=== PATIENT | male | born 1980 | race Caucasian/White ===

== ENCOUNTER 2018-09-13 21:50 | Emergency (ER) | payer SELFPAY ==
[~2018-09-13] VITALS: Ht 172.7 cm; Wt 102.1 kg
[2018-09-13 21:58] VITALS: BP 145/98
--- NOTE | 2018-09-13 22:02 | NUR ---
TO ED LOBBY AWATING BED IN MAIN ED.
--- NOTE | 2018-09-13 22:38 | NUR ---
PT TAKEN TO BED 5
[2018-09-13 22:39] VITALS: BP 145/98
--- NOTE | 2018-09-13 22:39 | NUR ---
37 Y/O PRESENTED TO ED WITH C/O L ANKLE PAIN S/P MECHANICAL FALL LAST NIGHT. EDEMA NOTED TO L ANKLE. ANKLE TENDER TO TOUCH. +CMS. PER PT DIFFICULT TO AMBULATE. CAP REFILL LESS THAN 3 SECONDS. SKIN NORMAL PER ETHNICITY. ERMD NOTIFIED. WILL CONTINUE TO MONITOR.
[2018-09-13] MEDS ORDERED: IBUPROFEN 800 MG TAB PO ONE (22:45)
--- NOTE | 2018-09-13 22:53 | NUR ---
CHIQUITA WRAP PLACED ON PT L ANKLE. +CSM
--- NOTE | 2018-09-13 22:55 | NUR ---
PT GIVEN INSTRUCTION ON PROPER USE OF CRUTCHES. CRUTCHES FITTED TO PT HEIGHT AND ARM LENGTH. PT GIVEN INSTRUCTION ON USE OF CRUTCHES, INCLUDING SITTING TO STANDING AND VICE VERSA, ASCEDNING/DESCENDING STAIRS, AND WALKING. PT DEMONSTRATED SAFE USE FOR APPROXIMATELY 40 FEET, STATED HE FELT COMFORTABLE WITH USE.
--- NOTE | 2018-09-13 23:04 | NUR ---
Patient discharged with v/s stable. Written and verbal after care instructions given and explained. Patient alert, oriented and verbalized understanding of instructions. Ambulatory with steady gait with crutches. All questions addressed prior to discharge. ID band removed. Patient advised to follow up with PMD. Rx of Ibuprofen given. Patient educated on indication of medication including possible reaction and side effects. Opportunity to ask questions provided and answered.
== END 2018-09-13 23:04 | disposition home or self-care (01) ==
LOC: MED 21:50
DX: S93.402A Sprain of unspecified ligament of left ankle, initial encounter (principal); X50.1XXA Overexertion from prolonged static or awkward postures, initial encounter; Y93.89 Activity, other specified; Y92.89 Other specified places as the place of occurrence of the external cause; Y99.8 Other external cause status
CPT/HCPCS: 73610; 99283

== ENCOUNTER 2019-11-05 10:14 | Emergency (ER) | payer MEDICAID ==
[~2019-11-05] VITALS: Ht 172.7 cm; Wt 103.0 kg
--- NOTE | 2019-11-05 10:15 | NUR ---
PT W/C ASSISTED TO BED 4.
[2019-11-05 10:23] VITALS: BP 126/77
--- NOTE | 2019-11-05 10:27 | NUR ---
38 y/o male from home c/o bilateral leg and foot pain, head pain, and blurred vision. States he fell from 2 story balcony 3 days ago, hit head with +LOC. Was admitted to [facility] night and discharged yesterday. Unable to ambulate due to 8/10 bilateral leg and foot pain. Noticable bruising to right foot. Abrasion to right upper arm noted. Pt awake and alert, GCS 15. Denies taking medication for pain today. medhx: denies
--- NOTE | 2019-11-05 10:52 | NUR ---
Dr. Huff is evaluating the patient at bedside.
[2019-11-05] MEDS ORDERED: KETOROLAC 30 MG/ML VIAL IM ONE (11:00)
--- NOTE | 2019-11-05 12:03 | NUR ---
Positioned for comfort, HOB elevated. Decrease in pain s/p Toradol IM. Awake and alert. VSS
--- NOTE | 2019-11-05 12:48 | NUR ---
Pt verbalizes and return demonstrates use of crutches.
[2019-11-05 12:49] VITALS: BP 121/74
--- NOTE | 2019-11-05 12:49 | NUR ---
Patient discharged with v/s stable. Written and verbal after care instructions given and explained. Patient alert, oriented and verbalized understanding of instructions. Ambulatory with steady gait. All questions addressed prior to discharge. ID band removed. Patient advised to follow up with PMD. Rx of Naprosyn 500mg and [place] 5mg-325mg given. Patient educated on indication of medication including possible reaction and side effects. Opportunity to ask questions provided and answered.
== END 2019-11-05 12:49 | disposition home or self-care (01) ==
LOC: MED 10:14
DX: S90.31XA Contusion of right foot, initial encounter (principal); S90.32XA Contusion of left foot, initial encounter; S83.91XA Sprain of unspecified site of right knee, initial encounter; S39.012A Strain of muscle, fascia and tendon of lower back, initial encounter; S09.90XA Unspecified injury of head, initial encounter; W13.0XXA Fall from, out of or through balcony, initial encounter; Y93.89 Activity, other specified; Y92.89 Other specified places as the place of occurrence of the external cause; Y99.8 Other external cause status
CPT/HCPCS: 70450; 72100; 73620; 96372; 99284; J1885

== ENCOUNTER 2022-10-16 10:59 | Inpatient (IN) | payer MEDICAID ==
[~2022-10-16] VITALS: Ht 172.7 cm; Wt 122.9 kg
[2022-10-16 11:03] VITALS: BP 150/104; PULSE 90; RESP 20; TEMP 97.7; O2SAT 97
[2022-10-16 11:46] VITALS: O2SAT 97
[2022-10-16 11:50] LABS: BASOPHILS % (AUTO) 0.3 % (0.0-2.0); EOSINOPHILS % (AUTO) 0.3 % (0.0-4.0); HEMATOCRIT 41.6 % (36-52); HEMOGLOBIN 14.3 g/dL (12.0-18.0); LYMPHOCYTES % (AUTO) 8.2 % (20.5-51.1); MEAN CORPUSCULAR HEMOGLOBIN 31 pg (27-31); MEAN CORPUSCULAR HGB CONC 34 g/dL (33-37); MEAN CORPUSCULAR VOLUME 89.7 fL (80-94); MONOCYTES # (AUTO) 0.8 K/uL (0.8-1.0); MONOCYTES % (AUTO) 6.6 % (1.7-9.3); NEUTROPHILS # (AUTO) 10.1 K/uL (1.8-7.7); NEUTROPHILS % (AUTO) 84.6 % (42.2-75.2); PLATELET COUNT (AUTO) 178 K/uL (140-450); RED BLOOD CELL COUNT(AUTO) 4.64 MIL/uL (4.20-6.10)
[2022-10-16] MEDS ORDERED: DICYCLOMINE HCL LIQUID 20 MG, ALUMINUM HYD/MAG/SIMETHICONE 30 ML, LIDOCAINE VISCOUS 2% ... PO ONE ×3 (11:50)
[2022-10-16] MEDS ORDERED: ACETAMINOPHEN EXTRA STRENGTH 500 MG TAB PO ONE (11:50)
[2022-10-16] MEDS ORDERED: ALUMINUM HYD/MAG/SIMETHICONE 30 ML UDC ONE (12:00)
[2022-10-16] MEDS ORDERED: DICYCLOMINE HCL LIQUID 10 MG/5 ML UDC ONE (12:00)
[2022-10-16 12:28] LABS: ALBUMIN 3.8 g/dL (3.4-5.0); CARBON DIOXIDE 29.7 mmol/L (21-32); CREATININE 0.9 mg/dL (0.6-1.3); POTASSIUM 3.7 mmol/L (3.5-5.1)
[2022-10-16] MEDS ORDERED: MORPHINE SULFATE 4 MG/ML SYR IVP ONE ×2 (13:20→17:50)
[2022-10-16 13:42] LABS: APPEARANCE,URINE CLEAR (CLEAR); BILIRUBIN,URINE NEGATIVE (NEGATIVE); BLOOD, URINE NEGATIVE (NEGATIVE); COLOR,URINE YELLOW (YELLOW); LEUKOCYTE ESTERASE ,URINE NEGATIVE (NEGATIVE); NITRITE, URINE NEGATIVE (NEGATIVE); PH,URINE 8.5 (5.0-9.0); PROTEIN,URINE TRACE (NEGATIVE); UGLUCOSE NEGATIVE (NEGATIVE)
[2022-10-16 13:46] VITALS: O2SAT 97
[2022-10-16] MEDS ORDERED: hydrALAZINE 20 MG/ML VIAL IVP ONE (13:55)
[2022-10-16 14:02] LABS: AMPHETAMINE, URINE NEGATIVE ng/ml (NEG <=1000); BARBITURATE, URINE NEGATIVE ng/ml (NEG <=200); BENZODIAZEPINE, URINE NEGATIVE ng/mL (NEG <=200); CANNABINOID, URINE NEGATIVE ng/mL (NEG <=50); COCAINE, URINE NEGATIVE ng/mL (NEG <=300); OPIATE, URINE NEGATIVE ng/mL (NEG <=2000); PHENCYCLIDINE SCREEN,URINE NEGATIVE ng/mL (NEG <=25)
[2022-10-16] MEDS ORDERED: metroNIDAZOLE 500 MG/NS PREMIX 100 ML IV ONE (15:35)
[2022-10-16 15:46] VITALS: O2SAT 98
[2022-10-16] MEDS ORDERED: cefTRIAXone 1,000 MG VIAL ONE (15:51)
[2022-10-16] MEDS ORDERED: HYDROcodone/APAP 5/325 MG 1 TAB TAB PO PRN (17:05)
[2022-10-16] MEDS ORDERED: MORPHINE SULFATE 2 MG/ML SYR IVP PRN (17:05)
[2022-10-16] MEDS: NACL 0.9% 1,000 ML IV SCH (17:52)
[2022-10-16 20:00] VITALS: PULSE 106; RESP 20; O2SAT 99
[2022-10-17] VITALS: BP 142/91; PULSE 106; RESP 20; TEMP 98.1; O2SAT 99
[2022-10-17] MEDS: NACL 0.9% 1,000 ML IV SCH ×2 (06:21→20:05)
[2022-10-17 08:00] VITALS: BP 128/90; PULSE 96; RESP 18; TEMP 98.5; O2SAT 97
[2022-10-17 09:00] VITALS: O2SAT 94
[2022-10-17] MEDS ORDERED: ceFAZolin 2,000 MG VIAL ONE (13:00)
[2022-10-17] MEDS ORDERED: SEVOFLURANE 250 ML BTL INH ONE (13:00)
[2022-10-17] MEDS ORDERED: ONDANSETRON 4 MG/2 ML VIAL ONE ×2 (13:00→13:53)
[2022-10-17] MEDS ORDERED: PROPOFOL 200 MG/20 ML VIAL IV ONE ×2 (13:00→13:53)
[2022-10-17] MEDS ORDERED: ROCURONIUM 50 MG/5 ML VIAL IV ONE (13:00)
[2022-10-17] MEDS ORDERED: NEOMYCIN/POLYMYXIN/BACITRACIN 0.9 GM/1 PKT TP ONE (13:00)
[2022-10-17] MEDS ORDERED: METOCLOPRAMIDE 10 MG/2 ML INJ VIAL ONE ×2 (13:00→13:53)
[2022-10-17] MEDS ORDERED: GLYCOPYRROLATE 0.2 MG/ML VIAL ONE ×3 (13:00→13:58)
[2022-10-17] MEDS ORDERED: MIDAZOLAM IV ONE (13:00)
[2022-10-17] MEDS ORDERED: DEXAMETHASONE 4 MG/ML VIAL ONE ×2 (13:00→13:53)
[2022-10-17] MEDS ORDERED: KETOROLAC 30 MG/ML VIAL ONE ×2 (13:00→14:00)
[2022-10-17] MEDS ORDERED: fentaNYL citrate 0.05 MG/ML - 50mL vial IV ONE (13:00)
[2022-10-17] MEDS ORDERED: BUPIVACAINE-MPF/EPI 0.25% 10 ML VIAL INJ ONE (13:18)
[2022-10-17] MEDS ORDERED: LIDOCAINE MPF 1% 10 ML ONE (13:18)
[2022-10-17] MEDS ORDERED: fentaNYL citrate 0.05 MG/ML VIAL ONE (13:27)
[2022-10-17] MEDS ORDERED: MIDAZOLAM 2 MG/2 ML VIAL ONE (13:29)
[2022-10-17] MEDS ORDERED: ceFAZolin 1,000 MG VIAL ONE (13:54)
[2022-10-17] MEDS ORDERED: NEOSTIGMINE 1:1000 10 MG/10 ML VIAL ONE (13:58)
[2022-10-17] MEDS ORDERED: ONDANSETRON 4 MG/2 ML VIAL IVP PRN (14:20)
[2022-10-17] MEDS ORDERED: HYDROmorphone 1 MG/ML AMP IVP PRN (14:20)
[2022-10-17] MEDS ORDERED: HYDROcodone/APAP 5/325 MG 1 TAB TAB PO PRN (15:25)
[2022-10-17 16:00] VITALS: BP 117/79; PULSE 109; RESP 18; TEMP 98.1; O2SAT 96
[2022-10-17] MEDS: HYDROmorphone 1 MG/ML AMP IVP PRN ×2 (17:00→23:01)
[2022-10-17 20:00] VITALS: BP 130/87; PULSE 110; RESP 18; RESP 20; TEMP 99.9; O2SAT 90; O2SAT 92
[2022-10-18 04:00] VITALS: BP 127/73; PULSE 92; RESP 18; TEMP 98.9; O2SAT 93
[2022-10-18] MEDS: NACL 0.9% 1,000 ML IV SCH ×2 (04:33→22:45)
[2022-10-18] MEDS: HYDROmorphone 1 MG/ML AMP IVP PRN ×3 (05:06→21:04)
[2022-10-18 08:00] VITALS: PULSE 96; RESP 18; O2SAT 94
[2022-10-18 08:10] VITALS: BP 134/79; PULSE 96; RESP 18; TEMP 98.5; O2SAT 93
[2022-10-18] MEDS ORDERED: METR-520 PO (11:24)
[2022-10-18] MEDS ORDERED: IBUP-2213 PO (11:24)
[2022-10-18 11:34] VITALS: BP_SYST 124; BP_SYST 134; BP_DIAS 74; BP_DIAS 79; PULSE 95; PULSE 96; RESP 18; TEMP 98.4; TEMP 98.5
[2022-10-18 11:41] LABS: BASOPHILS % (AUTO) 0.2 % (0.0-2.0); EOSINOPHILS # (AUTO) 0.1 K/uL (0-0.4); EOSINOPHILS % (AUTO) 0.6 % (0.0-4.0); HEMATOCRIT 36.1 % (36-52); HEMOGLOBIN 12.3 g/dL (12.0-18.0); LYMPHOCYTES # (AUTO) 1.6 K/uL (2.0-11.5); LYMPHOCYTES % (AUTO) 11.7 % (20.5-51.1); MEAN CORPUSCULAR HEMOGLOBIN 31 pg (27-31); MEAN CORPUSCULAR HGB CONC 34 g/dL (33-37); MEAN CORPUSCULAR VOLUME 90.9 fL (80-94); MONOCYTES # (AUTO) 1.3 K/uL (0.8-1.0); NEUTROPHILS # (AUTO) 10.5 K/uL (1.8-7.7); NEUTROPHILS % (AUTO) 77.5 % (42.2-75.2); PLATELET COUNT (AUTO) 151 K/uL (140-450); RED BLOOD CELL COUNT(AUTO) 3.97 MIL/uL (4.20-6.10); RED CELL DISTRIBUTION WIDTH 13.3 % (11.6-13.7); WHITE BLOOD COUNT (AUTO) 13.5 K/uL (4.8-10.8)
[2022-10-18 12:24] LABS: ALBUMIN 2.7 g/dL (3.4-5.0); ANION GAP 11.7 (8-16); CALCIUM 8.4 mg/dL (8.5-10.1); CARBON DIOXIDE 27.6 mmol/L (21-32); CREATININE 0.9 mg/dL (0.6-1.3); POTASSIUM 4.3 mmol/L (3.5-5.1); TOTAL BILIRUBIN 1.2 mg/dL (0.0-1.0); TOTAL PROTEIN, SERUM 7.2 g/dL (6.4-8.2)
[2022-10-18 15:17] VITALS: BP 136/74; PULSE 94; RESP 18; TEMP 97; O2SAT 92
[2022-10-18 20:00] VITALS: BP 127/87; PULSE 97; RESP 18; TEMP 98; O2SAT 97
[2022-10-18] MEDS ORDERED: cefTRIAXone 1,000 MG VIAL ONE (20:55)
[2022-10-18] MEDS: metroNIDAZOLE 500 MG/NS PREMIX 100 ML IV SCH (21:57)
[2022-10-19] MEDS: NACL 0.9% 1,000 ML IV SCH (01:26)
[2022-10-19] MEDS: HYDROmorphone 1 MG/ML AMP IVP PRN ×2 (03:07→08:54)
[2022-10-19 04:00] VITALS: BP 122/72; PULSE 94; RESP 18; TEMP 98.3; O2SAT 94
[2022-10-19] MEDS: metroNIDAZOLE 500 MG/NS PREMIX 100 ML IV SCH ×2 (05:39→11:53)
[2022-10-19 08:00] VITALS: PULSE 90; RESP 18; O2SAT 95
[2022-10-19] MEDS ORDERED: ENOXAPARIN 40 MG/0.4 ML SYR SUBQ SCH (09:00)
[2022-10-19 09:13] VITALS: BP 124/74; PULSE 90; RESP 18; TEMP 98.4; O2SAT 95
[2022-10-19 09:19] LABS: BASOPHILS % (AUTO) 0.4 % (0.0-2.0); EOSINOPHILS # (AUTO) 0.2 K/uL (0-0.4); EOSINOPHILS % (AUTO) 1.9 % (0.0-4.0); HEMATOCRIT 37.2 % (36-52); HEMOGLOBIN 12.5 g/dL (12.0-18.0); LYMPHOCYTES # (AUTO) 1.4 K/uL (2.0-11.5); LYMPHOCYTES % (AUTO) 12.6 % (20.5-51.1); MEAN CORPUSCULAR HEMOGLOBIN 31 pg (27-31); MEAN CORPUSCULAR HGB CONC 34 g/dL (33-37); MEAN CORPUSCULAR VOLUME 91.5 fL (80-94); MONOCYTES # (AUTO) 1.1 K/uL (0.8-1.0); MONOCYTES % (AUTO) 9.7 % (1.7-9.3); NEUTROPHILS # (AUTO) 8.4 K/uL (1.8-7.7); NEUTROPHILS % (AUTO) 75.4 % (42.2-75.2); PLATELET COUNT (AUTO) 187 K/uL (140-450); RED BLOOD CELL COUNT(AUTO) 4.07 MIL/uL (4.20-6.10); RED CELL DISTRIBUTION WIDTH 12.9 % (11.6-13.7); WHITE BLOOD COUNT (AUTO) 11.1 K/uL (4.8-10.8)
== END 2022-10-19 16:22 | disposition home or self-care (01) | DRG 234 ==
LOC: MED 10:59 → MTU 17:13
PROVIDERS: ADMIT Student in an Organized Health Care Education/Training Program; ATTEND Student in an Organized Health Care Education/Training Program
PROC: 0DTJ4ZZ Resection of Appendix, Percutaneous Endoscopic Approach (ICD-10-PCS; principal; 2022-10-17 12:00)
DX: K35.80 Unspecified acute appendicitis (principal); K76.0 Fatty (change of) liver, not elsewhere classified; E87.1 Hypo-osmolality and hyponatremia; D72.829 Elevated white blood cell count, unspecified; E86.0 Dehydration; R74.01 Elevation of levels of liver transaminase levels; E66.9 Obesity, unspecified; Z68.41 Body mass index [BMI] 40.0-44.9, adult
CPT/HCPCS: 36415; 76705; 80053; 80305; 81003; 83690; 84484; 85025; 87040; 87081; 88304; 93005; 96374; 96375; 99285; J0360; J0690; J0696; J1100; J1170; J1650; J1885; J2001; J2250; J2270; J2405; J2704; J2710; J2765; J3010; J3490; J7060; J7120; Q0092; Q9967

== ENCOUNTER 2022-10-30 12:29 | Inpatient (IN) | payer MEDICAID ==
[~2022-10-30] VITALS: Ht 172.7 cm; Wt 120.2 kg
[~2022-10-30 12:29] MED LIST: IBUP-2213 PO; METR-520 PO
[2022-10-30 12:35] VITALS: BP 127/91; PULSE 130; RESP 20; TEMP 99.9; O2SAT 95
[2022-10-30] MEDS ORDERED: NACL 0.9% 1,000 ML IV ONE (13:15)
[2022-10-30 13:49] LABS: BASOPHILS # (AUTO) 0.1 K/uL (0.00-0.22); BASOPHILS % (AUTO) 0.7 % (0.0-2.0); EOSINOPHILS % (AUTO) 0.2 % (0.0-4.0); HEMATOCRIT 37.4 % (36-52); HEMOGLOBIN 12.8 g/dL (12.0-18.0); LYMPHOCYTES # (AUTO) 1.2 K/uL (2.0-11.5); LYMPHOCYTES % (AUTO) 7.8 % (20.5-51.1); MEAN CORPUSCULAR HEMOGLOBIN 30 pg (27-31); MEAN CORPUSCULAR HGB CONC 34 g/dL (33-37); MEAN CORPUSCULAR VOLUME 88.9 fL (80-94); MONOCYTES # (AUTO) 1.5 K/uL (0.8-1.0); MONOCYTES % (AUTO) 9.5 % (1.7-9.3); NEUTROPHILS # (AUTO) 12.7 K/uL (1.8-7.7); NEUTROPHILS % (AUTO) 81.8 % (42.2-75.2); PLATELET COUNT (AUTO) 414 K/uL (140-450); RED BLOOD CELL COUNT(AUTO) 4.21 MIL/uL (4.20-6.10); RED CELL DISTRIBUTION WIDTH 12.7 % (11.6-13.7); WHITE BLOOD COUNT (AUTO) 15.5 K/uL (4.8-10.8)
[2022-10-30 14:13] LABS: LACTIC ACID 0.7 mmol/L (0.4-2.0)
[2022-10-30 14:26] LABS: INR 0.99 (0.8-1.2); PARTIAL THROMBOPLASTIN TIME 31.5 secs (22-35.6); PROTHROMBIN TIME 10.4 secs (10.8-13.4)
[2022-10-30 14:38] LABS: APPEARANCE,URINE CLEAR (CLEAR); BILIRUBIN,URINE NEGATIVE (NEGATIVE); BLOOD, URINE NEGATIVE (NEGATIVE); COLOR,URINE YELLOW (YELLOW); LEUKOCYTE ESTERASE ,URINE NEGATIVE (NEGATIVE); NITRITE, URINE NEGATIVE (NEGATIVE); PROTEIN,URINE 1+ (NEGATIVE); UGLUCOSE NEGATIVE (NEGATIVE)
[2022-10-30 14:40] LABS: ALANINE AMINOTRANSFERASE 75 U/L (12-78); ALKALINE PHOSPHATASE 107 U/L (50-136); ASPARTATE AMINOTRANSFERASE 32 U/L (15-37); CALCIUM 9.1 mg/dL (8.5-10.1); CARBON DIOXIDE 25.1 mmol/L (21-32); CHLORIDE 94 mmol/L (98-107); GFR ARICAN-AMERICAN 106 mL/min (>90); GFR NON ARICAN-AMERICAN 88 mL/min (>90); GLUCOSE 116 mg/dL (74-106); POTASSIUM 4.1 mmol/L (3.5-5.1); SODIUM SERUM 130 mmol/L (136-145); TOTAL BILIRUBIN 1.3 mg/dL (0.0-1.0); TOTAL PROTEIN, SERUM 8.7 g/dL (6.4-8.2); UREA NITROGEN, BLOOD 13 mg/dL (7-18)
[2022-10-30] MEDS ORDERED: MORPHINE SULFATE 4 MG/ML SYR IV ONE (15:50)
[2022-10-30] MEDS ORDERED: MORPHINE SULFATE 4 MG/ML SYR IVP ONE (17:50)
[2022-10-30] MEDS ORDERED: PIPERACILLIN/TAZOBACTAM 3.375 GM in DEXTROSE 5% 50 ML IV ONE (18:00)
[2022-10-30] MEDS ORDERED: PIPERACILLIN/TAZOBACTAM 3.375 GM VIAL IV ONE (18:16)
[2022-10-30 21:30] VITALS: PULSE 114; RESP 20; O2SAT 94
[2022-10-30 21:43] VITALS: BP 129/75; PULSE 114; PULSE 115; RESP 20; TEMP 99.9; O2SAT 94
[2022-10-30] MEDS: MORPHINE SULFATE 2 MG/ML SYR IVP PRN (21:54)
[2022-10-31] VITALS: BP 121/73; PULSE 106; PULSE 109; RESP 20; TEMP 98.4; O2SAT 95
[2022-10-31] MEDS: MORPHINE SULFATE 2 MG/ML SYR IVP PRN ×5 (02:37→23:50)
[2022-10-31 04:00] VITALS: BP 117/80; PULSE 111; PULSE 115; RESP 20; TEMP 98.8; O2SAT 95
[2022-10-31 08:00] VITALS: BP 113/80; PULSE 110; PULSE 112; RESP 20; TEMP 98.5; O2SAT 95
[2022-10-31] MEDS ORDERED: ONDANSETRON 4 MG ODT SL PRN (08:00)
[2022-10-31] MEDS: NACL 0.9% 1,000 ML IV SCH ×3 (08:49→23:56)
[2022-10-31] MEDS: PIPERACILLIN/TAZOBACTAM 3.375 GM in DEXTROSE 5% 50 ML IV SCH ×3 (08:49→20:56)
[2022-10-31 08:50] LABS: BASOPHILS # (AUTO) 0.1 K/uL (0.00-0.22); BASOPHILS % (AUTO) 0.3 % (0.0-2.0); EOSINOPHILS % (AUTO) 0.1 % (0.0-4.0); HEMATOCRIT 36.2 % (36-52); HEMOGLOBIN 12.3 g/dL (12.0-18.0); LYMPHOCYTES # (AUTO) 1.1 K/uL (2.0-11.5); LYMPHOCYTES % (AUTO) 6.7 % (20.5-51.1); MEAN CORPUSCULAR HEMOGLOBIN 30 pg (27-31); MEAN CORPUSCULAR HGB CONC 34 g/dL (33-37); MEAN CORPUSCULAR VOLUME 88.8 fL (80-94); MONOCYTES # (AUTO) 1.8 K/uL (0.8-1.0); MONOCYTES % (AUTO) 10.5 % (1.7-9.3); NEUTROPHILS # (AUTO) 14.1 K/uL (1.8-7.7); NEUTROPHILS % (AUTO) 82.4 % (42.2-75.2); PLATELET COUNT (AUTO) 390 K/uL (140-450); RED BLOOD CELL COUNT(AUTO) 4.07 MIL/uL (4.20-6.10); WHITE BLOOD COUNT (AUTO) 17.2 K/uL (4.8-10.8)
[2022-10-31 09:11] LABS: ALBUMIN 2.6 g/dL (3.4-5.0); ANION GAP 12.4 (8-16); CARBON DIOXIDE 27.7 mmol/L (21-32); POTASSIUM 4.1 mmol/L (3.5-5.1); TOTAL BILIRUBIN 1.7 mg/dL (0.0-1.0); TOTAL PROTEIN, SERUM 7.9 g/dL (6.4-8.2)
[2022-10-31] MEDS ORDERED: FLUMAZENIL 0.5 MG/5 ML VIAL IVP ONE (09:13)
[2022-10-31] MEDS ORDERED: MIDAZOLAM 5 MG/5 ML VIAL ONE (09:13)
[2022-10-31] MEDS ORDERED: NALOXONE 0.4 MG/ML VIAL ONE (09:13)
[2022-10-31] MEDS ORDERED: fentaNYL citrate 0.05 MG/ML VIAL ONE (09:13)
[2022-10-31] MEDS ORDERED: LIDOCAINE 1% 500 MG/50 ML VIAL ONE (09:19)
[2022-10-31 12:00] VITALS: BP 119/73; PULSE 109; PULSE 111; RESP 20; TEMP 97.2; O2SAT 95
[2022-10-31 16:00] VITALS: BP 123/82; PULSE 106; PULSE 108; RESP 18; TEMP 100.7; O2SAT 94
[2022-10-31] MEDS: ACETAMINOPHEN 325 MG TAB PO PRN (16:28)
[2022-10-31 20:00] VITALS: BP 119/68; PULSE 100; PULSE 93; RESP 18; TEMP 98.1; O2SAT 94
[2022-11-01] VITALS: BP 111/71; PULSE 94; PULSE 95; RESP 18; TEMP 97.3; O2SAT 96
[2022-11-01 04:00] VITALS: BP 104/70; PULSE 88; PULSE 89; RESP 17; TEMP 96.9; O2SAT 93
[2022-11-01] MEDS: ACETAMINOPHEN 325 MG TAB PO PRN ×2 (05:36→12:39)
[2022-11-01] MEDS: PIPERACILLIN/TAZOBACTAM 3.375 GM in DEXTROSE 5% 50 ML IV SCH ×3 (05:37→22:40)
[2022-11-01] MEDS: MORPHINE SULFATE 2 MG/ML SYR IVP PRN ×3 (05:38→18:44)
[2022-11-01 06:22] LABS: BASOPHILS # (AUTO) 0.1 K/uL (0.00-0.22); BASOPHILS % (AUTO) 0.6 % (0.0-2.0); EOSINOPHILS # (AUTO) 0.1 K/uL (0-0.4); EOSINOPHILS % (AUTO) 1.2 % (0.0-4.0); HEMATOCRIT 35.2 % (36-52); LYMPHOCYTES # (AUTO) 1.2 K/uL (2.0-11.5); LYMPHOCYTES % (AUTO) 11.3 % (20.5-51.1); MEAN CORPUSCULAR HEMOGLOBIN 31 pg (27-31); MEAN CORPUSCULAR HGB CONC 34 g/dL (33-37); MEAN CORPUSCULAR VOLUME 89.7 fL (80-94); MONOCYTES % (AUTO) 9.7 % (1.7-9.3); NEUTROPHILS # (AUTO) 8.3 K/uL (1.8-7.7); NEUTROPHILS % (AUTO) 77.2 % (42.2-75.2); PLATELET COUNT (AUTO) 352 K/uL (140-450); RED BLOOD CELL COUNT(AUTO) 3.92 MIL/uL (4.20-6.10); RED CELL DISTRIBUTION WIDTH 12.8 % (11.6-13.7); WHITE BLOOD COUNT (AUTO) 10.7 K/uL (4.8-10.8)
[2022-11-01 06:39] LABS: ALBUMIN 2.3 g/dL (3.4-5.0); ANION GAP 12.3 (8-16); CALCIUM 8.7 mg/dL (8.5-10.1); CARBON DIOXIDE 28.6 mmol/L (21-32); CREATININE 0.9 mg/dL (0.6-1.3); POTASSIUM 3.9 mmol/L (3.5-5.1); TOTAL BILIRUBIN 1.5 mg/dL (0.0-1.0); TOTAL PROTEIN, SERUM 7.5 g/dL (6.4-8.2)
[2022-11-01 08:00] VITALS: BP 110/72; PULSE 84; PULSE 86; PULSE 89; RESP 18; RESP 20; TEMP 96; O2SAT 93; O2SAT 99
[2022-11-01 16:00] VITALS: BP 114/76; PULSE 77; RESP 18; TEMP 97.7; O2SAT 94
[2022-11-01 20:00] VITALS: BP 125/79; PULSE 79; PULSE 84; RESP 18; TEMP 96; O2SAT 93
[2022-11-01] MEDS: NACL 0.9% 1,000 ML IV SCH (21:30)
[2022-11-01] MEDS: HYDROcodone/APAP 5/325 MG 1 TAB TAB PO PRN (22:53)
[2022-11-02] VITALS: BP 122/78; PULSE 84; RESP 18; TEMP 96; O2SAT 93
[2022-11-02] MEDS: NACL 0.9% 1,000 ML IV SCH ×2 (03:50→21:20)
[2022-11-02 04:00] VITALS: BP 117/84; PULSE 78; RESP 18; TEMP 96; O2SAT 96
[2022-11-02] MEDS: MORPHINE SULFATE 2 MG/ML SYR IVP PRN ×3 (04:11→17:45)
[2022-11-02] MEDS: PIPERACILLIN/TAZOBACTAM 3.375 GM in DEXTROSE 5% 50 ML IV SCH ×3 (05:21→21:27)
[2022-11-02 07:20] LABS: BASOPHILS # (AUTO) 0.1 K/uL (0.00-0.22); BASOPHILS % (AUTO) 0.8 % (0.0-2.0); EOSINOPHILS # (AUTO) 0.3 K/uL (0-0.4); EOSINOPHILS % (AUTO) 3.5 % (0.0-4.0); HEMATOCRIT 33.2 % (36-52); HEMOGLOBIN 11.3 g/dL (12.0-18.0); LYMPHOCYTES # (AUTO) 1.7 K/uL (2.0-11.5); LYMPHOCYTES % (AUTO) 21.9 % (20.5-51.1); MEAN CORPUSCULAR HEMOGLOBIN 30 pg (27-31); MEAN CORPUSCULAR HGB CONC 34 g/dL (33-37); MEAN CORPUSCULAR VOLUME 89.3 fL (80-94); MONOCYTES # (AUTO) 0.7 K/uL (0.8-1.0); MONOCYTES % (AUTO) 9.6 % (1.7-9.3); NEUTROPHILS # (AUTO) 4.9 K/uL (1.8-7.7); NEUTROPHILS % (AUTO) 64.2 % (42.2-75.2); PLATELET COUNT (AUTO) 372 K/uL (140-450); RED BLOOD CELL COUNT(AUTO) 3.72 MIL/uL (4.20-6.10); RED CELL DISTRIBUTION WIDTH 12.5 % (11.6-13.7); WHITE BLOOD COUNT (AUTO) 7.7 K/uL (4.8-10.8)
[2022-11-02 07:39] LABS: ALBUMIN 2.3 g/dL (3.4-5.0); ANION GAP 8.8 (8-16); CALCIUM 8.8 mg/dL (8.5-10.1); CARBON DIOXIDE 30.2 mmol/L (21-32); TOTAL BILIRUBIN 0.7 mg/dL (0.0-1.0); TOTAL PROTEIN, SERUM 7.4 g/dL (6.4-8.2)
[2022-11-02 08:00] VITALS: BP 118/85; PULSE 71; RESP 18; TEMP 96.5; O2SAT 93; O2SAT 96
[2022-11-02 16:00] VITALS: BP 119/83; PULSE 78; RESP 18; TEMP 97.9; O2SAT 96
[2022-11-02 20:00] VITALS: BP 115/74; PULSE 87; RESP 18; TEMP 97.9; O2SAT 92
[2022-11-02] MEDS: HYDROcodone/APAP 5/325 MG 1 TAB TAB PO PRN (21:25)
[2022-11-03 04:00] VITALS: BP 119/70; PULSE 85; RESP 18; TEMP 98.1; O2SAT 93
[2022-11-03] MEDS: PIPERACILLIN/TAZOBACTAM 3.375 GM in DEXTROSE 5% 50 ML IV SCH ×3 (05:36→20:37)
[2022-11-03 06:54] LABS: BASOPHILS # (AUTO) 0.1 K/uL (0.00-0.22); BASOPHILS % (AUTO) 1.6 % (0.0-2.0); EOSINOPHILS # (AUTO) 0.3 K/uL (0-0.4); EOSINOPHILS % (AUTO) 5.2 % (0.0-4.0); HEMATOCRIT 35.4 % (36-52); HEMOGLOBIN 12.2 g/dL (12.0-18.0); LYMPHOCYTES # (AUTO) 1.5 K/uL (2.0-11.5); LYMPHOCYTES % (AUTO) 23.6 % (20.5-51.1); MEAN CORPUSCULAR HEMOGLOBIN 31 pg (27-31); MEAN CORPUSCULAR HGB CONC 35 g/dL (33-37); MEAN CORPUSCULAR VOLUME 88.7 fL (80-94); MONOCYTES # (AUTO) 0.5 K/uL (0.8-1.0); MONOCYTES % (AUTO) 8.6 % (1.7-9.3); NEUTROPHILS # (AUTO) 3.8 K/uL (1.8-7.7); PLATELET COUNT (AUTO) 394 K/uL (140-450); RED BLOOD CELL COUNT(AUTO) 3.99 MIL/uL (4.20-6.10); RED CELL DISTRIBUTION WIDTH 12.6 % (11.6-13.7); WHITE BLOOD COUNT (AUTO) 6.3 K/uL (4.8-10.8)
[2022-11-03 07:23] LABS: ALBUMIN 2.4 g/dL (3.4-5.0); ANION GAP 10.7 (8-16); CARBON DIOXIDE 28.3 mmol/L (21-32); CREATININE 0.9 mg/dL (0.6-1.3); TOTAL BILIRUBIN 0.5 mg/dL (0.0-1.0); TOTAL PROTEIN, SERUM 7.5 g/dL (6.4-8.2)
[2022-11-03 08:00] VITALS: BP 124/86; PULSE 80; RESP 18; TEMP 97.8; O2SAT 97
[2022-11-03] MEDS: HYDROcodone/APAP 5/325 MG 1 TAB TAB PO PRN (10:13)
[2022-11-03] MEDS: NACL 0.9% 1,000 ML IV SCH ×2 (10:19→23:22)
[2022-11-03] MEDS ORDERED: IBUP-2213 PO (11:33)
[2022-11-03] MEDS: MORPHINE SULFATE 2 MG/ML SYR IVP PRN ×2 (14:39→20:36)
[2022-11-03 20:00] VITALS: BP 105/75; PULSE 77; RESP 18; TEMP 97.8; O2SAT 96
[2022-11-04 00:26] VITALS: BP 114/67; PULSE 73; RESP 18; TEMP 97.3; O2SAT 95
[2022-11-04] MEDS: MORPHINE SULFATE 2 MG/ML SYR IVP PRN ×2 (00:44→23:41)
[2022-11-04] MEDS: PIPERACILLIN/TAZOBACTAM 3.375 GM in DEXTROSE 5% 50 ML IV SCH ×3 (04:03→21:28)
[2022-11-04] MEDS: NACL 0.9% 1,000 ML IV SCH (04:03)
[2022-11-04 04:26] VITALS: BP 118/71; PULSE 97; RESP 18; TEMP 97.2; O2SAT 97
[2022-11-04 06:54] LABS: BASOPHILS % (AUTO) 0.7 % (0.0-2.0); EOSINOPHILS # (AUTO) 0.4 K/uL (0-0.4); EOSINOPHILS % (AUTO) 5.3 % (0.0-4.0); HEMATOCRIT 35.3 % (36-52); HEMOGLOBIN 12.1 g/dL (12.0-18.0); LYMPHOCYTES # (AUTO) 1.8 K/uL (2.0-11.5); LYMPHOCYTES % (AUTO) 23.8 % (20.5-51.1); MEAN CORPUSCULAR HEMOGLOBIN 30 pg (27-31); MEAN CORPUSCULAR HGB CONC 34 g/dL (33-37); MONOCYTES # (AUTO) 0.7 K/uL (0.8-1.0); MONOCYTES % (AUTO) 8.7 % (1.7-9.3); NEUTROPHILS # (AUTO) 4.6 K/uL (1.8-7.7); NEUTROPHILS % (AUTO) 61.5 % (42.2-75.2); PLATELET COUNT (AUTO) 417 K/uL (140-450); RED BLOOD CELL COUNT(AUTO) 3.97 MIL/uL (4.20-6.10); RED CELL DISTRIBUTION WIDTH 12.8 % (11.6-13.7); WHITE BLOOD COUNT (AUTO) 7.5 K/uL (4.8-10.8)
[2022-11-04 06:59] LABS: ALBUMIN 2.5 g/dL (3.4-5.0); ANION GAP 7.3 (8-16); CALCIUM 9.1 mg/dL (8.5-10.1); CARBON DIOXIDE 31.6 mmol/L (21-32); CREATININE 1.1 mg/dL (0.6-1.3); POTASSIUM 3.9 mmol/L (3.5-5.1); TOTAL BILIRUBIN 0.4 mg/dL (0.0-1.0); TOTAL PROTEIN, SERUM 7.6 g/dL (6.4-8.2)
[2022-11-04] MEDS ORDERED: AMOX-999 PO (07:40)
[2022-11-04 08:00] VITALS: PULSE 76; RESP 18; O2SAT 97
[2022-11-04 20:00] VITALS: BP 112/70; PULSE 82; RESP 18; TEMP 97.7; O2SAT 98
[2022-11-04] MEDS: HYDROcodone/APAP 5/325 MG 1 TAB TAB PO PRN (20:41)
[2022-11-05] MEDS: NACL 0.9% 1,000 ML IV SCH (00:52)
[2022-11-05 04:00] VITALS: BP 106/72; PULSE 60; RESP 18; TEMP 97.2; O2SAT 93
[2022-11-05] MEDS: PIPERACILLIN/TAZOBACTAM 3.375 GM in DEXTROSE 5% 50 ML IV SCH (06:16)
[2022-11-05 07:28] LABS: BASOPHILS # (AUTO) 0.1 K/uL (0.00-0.22); BASOPHILS % (AUTO) 0.9 % (0.0-2.0); EOSINOPHILS # (AUTO) 0.4 K/uL (0-0.4); EOSINOPHILS % (AUTO) 5.6 % (0.0-4.0); MEAN CORPUSCULAR HEMOGLOBIN 31 pg (27-31); MEAN CORPUSCULAR HGB CONC 34 g/dL (33-37); MEAN CORPUSCULAR VOLUME 88.6 fL (80-94); MONOCYTES # (AUTO) 0.7 K/uL (0.8-1.0); MONOCYTES % (AUTO) 9.1 % (1.7-9.3); NEUTROPHILS # (AUTO) 4.4 K/uL (1.8-7.7); NEUTROPHILS % (AUTO) 58.4 % (42.2-75.2); PLATELET COUNT (AUTO) 403 K/uL (140-450); RED BLOOD CELL COUNT(AUTO) 3.95 MIL/uL (4.20-6.10); RED CELL DISTRIBUTION WIDTH 12.8 % (11.6-13.7); WHITE BLOOD COUNT (AUTO) 7.6 K/uL (4.8-10.8)
[2022-11-05 07:38] LABS: ALBUMIN 2.7 g/dL (3.4-5.0); ANION GAP 10.9 (8-16); CALCIUM 9.1 mg/dL (8.5-10.1); CARBON DIOXIDE 28.8 mmol/L (21-32); CREATININE 0.9 mg/dL (0.6-1.3); POTASSIUM 3.7 mmol/L (3.5-5.1); TOTAL BILIRUBIN 0.5 mg/dL (0.0-1.0); TOTAL PROTEIN, SERUM 7.7 g/dL (6.4-8.2)
[2022-11-05 11:29] VITALS: BP 128/90; PULSE 71; RESP 18; TEMP 97
== END 2022-11-05 12:20 | disposition home or self-care (01) | DRG 721 ==
LOC: MED 12:29 → MTU 18:51
PROVIDERS: ADMIT Student in an Organized Health Care Education/Training Program; ATTEND Student in an Organized Health Care Education/Training Program
PROC: 0W9G30Z Drainage of Peritoneal Cavity with Drainage Device, Percutaneous Approach (ICD-10-PCS; principal; 2022-10-31)
DX: T81.49XA Infection following a procedure, other surgical site, initial encounter (principal); K65.1 Peritoneal abscess; A41.9 Sepsis, unspecified organism; E43 Unspecified severe protein-calorie malnutrition; E87.1 Hypo-osmolality and hyponatremia; R16.2 Hepatomegaly with splenomegaly, not elsewhere classified; D63.8 Anemia in other chronic diseases classified elsewhere; E87.8 Other disorders of electrolyte and fluid balance, not elsewhere classified; Y83.6 Removal of other organ (partial) (total) as the cause of abnormal reaction of the patient, or of later complication, without mention of misadventure at the time of the procedure; R74.01 Elevation of levels of liver transaminase levels; Z68.41 Body mass index [BMI] 40.0-44.9, adult; Y92.89 Other specified places as the place of occurrence of the external cause
CPT/HCPCS: 36415; 80053; 81003; 83605; 84484; 85025; 85610; 85730; 87040; 87081; 87086; 87116; 87190; 87206; 93005; 96361; 96374; 96375; 96376; 99285; C1729; J2001; J2250; J2270; J2310; J2543; J3010; J3490; J7060; Q9967

== ENCOUNTER 2023-02-25 15:49 | Emergency (ER) | payer MEDICAID, OTHER ==
[~2023-02-25] VITALS: Ht 172.7 cm; Wt 115.7 kg
[~2023-02-25 15:49] MED LIST changes: +AMOX-999 PO; -METR-520 PO
[2023-02-25 16:20] VITALS: BP 143/96; PULSE 105; RESP 15; TEMP 98.7; O2SAT 95
[2023-02-25 16:52] LABS: BILIRUBIN,URINE 1+ (NEGATIVE); BLOOD, URINE 3+ (NEGATIVE); LEUKOCYTE ESTERASE ,URINE 1+ (NEGATIVE); NITRITE, URINE POSITIVE (NEGATIVE); PH,URINE 6.5 (5.0-9.0); PROTEIN,URINE 3+ (NEGATIVE); UGLUCOSE NEGATIVE (NEGATIVE)
[2023-02-25 16:57] LABS: APPEARANCE,URINE HAZY (CLEAR); COLOR,URINE SLIGHT BLOODY (YELLOW)
[2023-02-25 16:58] LABS: BACTERIA,URINE 10-30 (MOD) /HPF (None Seen); RBC,URINE 50-80 /HPF (0-5); SQUAMOUS EPITHELIAL CELL,UR 0-3 (FEW) /LPF (0-3 (FEW))
[2023-02-25 17:00] LABS: ICTOTEST NEGATIVE (NEGATIVE)
[2023-02-25] MEDS ORDERED: SULF-59 PO (17:21)
== END 2023-02-25 17:29 | disposition home or self-care (01) ==
LOC: MED 15:49
DX: N39.0 Urinary tract infection, site not specified (principal); Z90.49 Acquired absence of other specified parts of digestive tract; Z79.2 Long term (current) use of antibiotics; Z79.1 Long term (current) use of non-steroidal anti-inflammatories (NSAID)
CPT/HCPCS: 81001; 87086; 99283